=== PATIENT | female | born 1990 | race Caucasian/White ===

== ENCOUNTER 2022-03-21 14:49 | Emergency (ER) | payer BC, SELFPAY ==
[2022-03-21 15:20] VITALS: BP 112/78; PULSE 111; RESP 20; TEMP 37.9; O2SAT 98; BMI 34.8
[2022-03-21 15:30] VITALS: BP 109/72; PULSE 110; RESP 16; O2SAT 98
--- NOTE | 2022-03-21 15:56 | ED.GENADULT ---
HPI - General Adult General Chief complaint: Diarrhea Stated complaint: Fever, diarrhea, body aches Time Seen by Provider: 03/21/22 15:43 History of Present Illness HPI narrative: This 31-year-old female comes in reporting persistent diarrhea over the past several days. She was seen a couple days ago at [facility] where testing for COVID, influenza were negative. This to have diarrhea and is measuring a fever on occasions. There is a measure of 102? F. she has some nausea but no vomiting. She does not report any blood in the toilet. She has a headache and diffuse myalgias and aches and pains. She also has some mild abdominal pain. Related Data Previous Rx's Medication Instructions Recorded ketorolac 10 mg tablet 10 mg PO TID 5 Days #15 tab 03/21/22 ondansetron HCl 4 mg tablet 4 mg PO Q6H #20 tab 03/21/22 Review of Systems Status of ROS: Reports: 10 or more systems reviewed and unremarkable except as noted in History and below Narrative: Constitutional: No weight gain or loss. She reports some fevers on occasion. Eyes: No discharge. No vision changes. HENT: No congestion, no sore throat, no ear pain. Cardiovascular: No chest pain, no palpitations. Respiratory: No shortness of breath, no wheezes, no cough. Gastrointestinal: Nausea and diarrhea matting. Diffuse abdominal pain. Genitourinary: No dysuria, no hematuria. Musculoskeletal: Normal range of motion. Skin: No rashes, no pruritis. Neurological: No dizziness, weakness, sensory change, speech change. Endo/Heme/Allergies: No bruising or bleeding. No polydipsia. Pysch: no suicidality, no anxiety, no insomnia. All other systems reviewed and are negative. Exam Narrative: Exam Narrative: Constitutional: Well-developed, well-nourished, no acute distress. HEENT: Normocephalic, atraumatic. Neck: Normal range of motion. Nontender. Supple. Heart: Regular. No murmurs. Normal rate. Intact distal pulses. Lungs: Clear to auscultation. No chest discomfort. No wheezes, rhonchi, or rales. Abdomen: Normal bowel sounds. Mild diffuse tenderness. No rebound tenderness. Genitalia: Deferred. Back: No midline tenderness. Normal range of motion. Extremities: Normal range of motion. No injury. Skin: Intact. No rash. Warm. No erythema or pallor. Neurologic: No altered sensation. No weakness. Alert and oriented. Psychiatric: No suicidality. No anxiety or depression. No insomnia. Nursing notes and vitals signs are reviewed. Const: Vital Signs, click to edit/add: Vital Signs - 24 hr 03/21/22 15:20 Temperature 100.2 F H Pulse Rate [Femora l] 111 H Respiratory Rate 20 Blood Pressure [Le ft Upper Arm] 112/78 Pulse Oximetry 98 Course Vital Signs Vital signs: Initial Vital Signs Temperature 100.2 F H 03/21/22 15:20 Temperature Source Temporal Artery Scan 03/21/22 15:20 Pulse Rate 111 H 03/21/22 15:20 Pulse Rhythm 03/21/22 15:20 Pulse Strength 0+ Absent 03/21/22 15:20 Respiratory Rate 20 03/21/22 15:20 Blood Pressure 112/78 03/21/22 15:20 Blood Pressure Mean 89 03/21/22 15:20 Blood Pressure Position Supine 03/21/22 15:20 Pulse Oximetry 98 03/21/22 15:20 Oxygen Delivery Method 03/21/22 15:20 Vital Signs Temperature 100.2 F H 03/21/22 15:20 Pulse Rate 111 H 03/21/22 15:20 Respiratory Rate 20 03/21/22 15:20 Blood Pressure 112/78 03/21/22 15:20 Pulse Oximetry 98 03/21/22 15:20 Temperature 100.2 F H 03/21/22 15:20 Pulse Rate 111 H 03/21/22 15:20 Respiratory Rate 20 03/21/22 15:20 Blood Pressure 112/78 03/21/22 15:20 Pulse Oximetry 98 03/21/22 15:20 Medical Decision Making MDM Narrative Medical decision making narrative: This patient comes in with diarrhea and symptoms as described above over the past 2-3 days. An IV was established where she received a L of normal saline, Toradol 30 mg, and Zofran 4 mg. This brought relief to her symptoms. She has not had any ongoing diarrhea. Lab results also returned with reassuring findings. There was no triggers that indicate a need for imaging at this time. She is okay to return home and received prescriptions for Toradol and Zofran. I did describe signs and symptoms that would indicate a need for return and re-evaluation. Lab Data Labs: Lab Results 03/21/22 03/21/22 Range/Units 16:15 16:15 WBC 9.98 (4.50-11.00) K/uL RBC 4.89 (4.00-5.20) m/uL Hgb 15.1 (12.0-16.0) gm/dL Hct 44.4 (33.0-51.0) % MCV 91 (80-100) fL MCH 31 (26-34) pg MCHC 34 (32-36) gm/dL RDW Coeff of Lakeisha 11.2 L (11.5-15.5) % Plt Count 182 (140-440) K/uL Neut % (Auto) 77.7 H (42.0-72.0) % Lymph % (Auto) 11.5 L (20-44) % [place] % (Auto) 9.6 (0.0-11.0) % Eos % (Auto) 0.6 (0.0-7.0) % Baso % (Auto) 0.2 (0.0-3.0) % Neut # (Auto) 7.80 H (1.7-7.0) K/uL Lymph # (Auto) 1.10 (0.90-2.90) K/uL [place] # (Auto) 1.00 H (0.00-0.90) K/UL Eos # (Auto) 0.06 (0.00-0.50) K/uL Baso # (Auto) 0.02 (0.00-0.30) K/uL Abs Immat Gran (auto) 0.04 (0.00-0.30) K/uL Sodium 134 L (135-149) mmol/L Potassium 3.9 (3.6-5.1) mmol/L Chloride 103 (96-114) mmol/L Carbon Dioxide 24 (20-32) mmol/L BUN 16 (5-24) mg/dL Creatinine 0.7 (0.5-1.5) mg/dL Estimated Creat Clear 106.71 Estimated GFR 120 ml/min Glucose 106 (60-115) mg/dL Calcium 8.3 L (8.4-10.6) mg/dL Discharge Plan Discharge Clinical Impression: Gastroenteritis Patient Disposition: Home, Self-Care Condition: Stable Instructions: Gastroenteritis (ED) Prescriptions: New ondansetron HCl 4 mg tablet 4 mg PO Q6H Qty: 20 0RF ketorolac 10 mg tablet 10 mg PO TID 5 Days Qty: 15 0RF Follow Up/Referrals: Provider,Not a Local [Primary Care Provider] - Stand Alone Forms: [employer] Info Instructions
[2022-03-21 16:00] VITALS: BP 110/68; PULSE 100; RESP 16; O2SAT 96
[2022-03-21] MEDS: 0.9 % SODIUM CHLORIDE 1000 ml 1,000 ML IV (16:20)
[2022-03-21] MEDS: ONDANSETRON 2 MG/ML inj 4 MG IVP (16:20)
[2022-03-21] MEDS: KETOROLAC 30 MG/ML inj IVP (16:20)
[2022-03-21 16:30] VITALS: BP 125/83; PULSE 109; RESP 16; O2SAT 95
[2022-03-21 16:33] LABS: Basophils Absolute Auto 0.02 K/uL (0.00-0.30); Basophils Percent Auto 0.2 % (0.0-3.0); Eosinophils Absolute Auto 0.06 K/uL (0.00-0.50); Eosinophils Percent Auto 0.6 % (0.0-7.0); Hematocrit 44.4 % (33.0-51.0); Hemoglobin* 15.1 gm/dL (12.0-16.0); Immature Granulocytes Abs Auto 0.04 K/uL (0.00-0.30); Lymphocytes Percent Auto 11.5 % (20-44); Mean Corpuscular HGB Conc 34 gm/dL (32-36); Mean Corpuscular Hemoglobin 31 pg (26-34); Mean Corpuscular Volume 91 fL (80-100); Monocytes Percent Auto 9.6 % (0.0-11.0); Neutrophils Percent Auto 77.7 % (42.0-72.0); Platelet Count* 182 K/uL (140-440); RDW Coefficient of Variation % 11.2 % (11.5-15.5); Red Blood Count 4.89 m/uL (4.00-5.20); White Blood Count* 9.98 K/uL (4.50-11.00)
[2022-03-21 16:39] LABS: Slide Review Reflex No
[2022-03-21 16:57] LABS: Chloride* 103 mmol/L (96-114); Potassium* 3.9 mmol/L (3.6-5.1); Sodium* 134 mmol/L (135-149)
[2022-03-21 16:59] LABS: Creatinine* 0.7 mg/dL (0.5-1.5); Est. Creatinine Clearance* 106.71; Estimated Glomerular Filt Rate 120 ml/min
[2022-03-21 17:00] VITALS: BP 132/84; PULSE 101; RESP 16; O2SAT 95
[2022-03-21 17:00] LABS: Blood Urea Nitrogen* 16 mg/dL (5-24); Calcium* 8.3 mg/dL (8.4-10.6); Carbon Dioxide* 24 mmol/L (20-32); Glucose* 106 mg/dL (60-115)
[2022-03-21 17:30] VITALS: BP 124/78; PULSE 104; RESP 16; O2SAT 95
== END 2022-03-21 17:51 | disposition home or self-care (01) ==
PROVIDERS: Emergency Provider Emergency Medicine Emergency Medical Services
DX: K52.9 Noninfective gastroenteritis and colitis, unspecified (principal)
CPT/HCPCS: 36415; 80048; 85025; 96374; 96375; 99284; J1885; J2405; J7030